=== PATIENT | female | born 1985 | race Caucasian/White ===

== ENCOUNTER 2019-01-30 01:41 | Emergency (ER) | payer SELFPAY ==
[~2019-01-30] VITALS: Ht 160 cm; Wt 49.4 kg
[2019-01-30] MEDS ORDERED: TETRACAINE HCL 0.5% OPHT DROP 2 ML BOTTLE OP ONE (02:15)
[2019-01-30] MEDS ORDERED: FLUORESCEIN SODIUM 1 MG STRIP OP ONE (02:15)
[2019-01-30] MEDS ORDERED: TETRACAINE HCL 0.5% OPHT DROP 2 ML BOTTLE ONE (02:22)
[2019-01-30] MEDS ORDERED: FLUORESCEIN SODIUM 1 MG STRIP ONE ×2 (02:22→02:34)
[2019-01-30] MEDS ORDERED: ERYTHROMYCIN 0.5% OPHT OINT 3.5 GM TUBE ONE (03:10)
[2019-01-30] MEDS ORDERED: ERYTHROMYCIN 0.5% OPHT OINT 3.5 GM TUBE EACHEYE ONE (03:15)
--- NOTE | 2019-01-30 03:20 | NUR ---
Visual accuity done 20/70 right eye 20/100 left eye 20/70 OU Flushed both eyes with 1 litre of Normal Saline.
[2019-01-30 03:22] VITALS: BP 120/68
== END 2019-01-30 03:29 | disposition home or self-care (01) ==
LOC: ER 01:46
DX: S05.01XA Injury of conjunctiva and corneal abrasion without foreign body, right eye, initial encounter (principal); S05.02XA Injury of conjunctiva and corneal abrasion without foreign body, left eye, initial encounter; H10.213 Acute toxic conjunctivitis, bilateral; J45.909 Unspecified asthma, uncomplicated; X58.XXXA Exposure to other specified factors, initial encounter; Y93.89 Activity, other specified; Y92.89 Other specified places as the place of occurrence of the external cause; Y99.8 Other external cause status
CPT/HCPCS: A4663

== ENCOUNTER 2020-02-29 19:59 | Emergency (ER) | payer SELFPAY ==
[~2020-02-29] VITALS: Ht 160 cm; Wt 49.9 kg
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
[2020-02-29] MEDS ORDERED: OXYCODONE/APAP 5-325 MG TABLET PO ONE (21:15)
[2020-02-29] MEDS ORDERED: OXYCODONE/APAP 5-325 MG TABLET ONE (21:19)
[2020-02-29 21:47] LABS: *URINE HCG, QUAL NEGATIVE (NEGATIVE)
--- NOTE | 2020-02-29 22:01 | NUR ---
PATIENT RETURNED FROM CT SCAN.
[2020-02-29 22:25] VITALS: BP 124/77
--- NOTE | 2020-02-29 22:25 | NUR ---
Patient discharged to home in stable condition. Written and verbal after care instructions given. Patient verbalizes understanding of instructions. Stressed follow up or return to ER for worsening s/s. PATIENT LEFT WITH STABLE GAIT.
== END 2020-02-29 22:26 | disposition home or self-care (01) ==
LOC: ER 20:01
DX: S09.90XA Unspecified injury of head, initial encounter (principal); S16.1XXA Strain of muscle, fascia and tendon at neck level, initial encounter; V43.52XA Car driver injured in collision with other type car in traffic accident, initial encounter; Y92.410 Unspecified street and highway as the place of occurrence of the external cause; J45.909 Unspecified asthma, uncomplicated
CPT/HCPCS: 70450; 72125; 84703; A4663